=== PATIENT | female | born 1995 | race Caucasian/White ===

== ENCOUNTER 2019-12-07 18:23 | Emergency (ER) | payer BC, SELFPAY ==
[2019-12-07 18:24] VITALS: BMI 44.3
[2019-12-07 18:31] VITALS: BP 138/87; PULSE 114; RESP 18; TEMP 36.7; O2SAT 97
--- NOTE | 2019-12-07 19:19 | ED_ITS ---
HPI - General Adult General: Chief complaint: Abdominal Pain Stated complaint: ABD PAIN Time Seen by Provider: 12/07/19 19:07 History of Present Illness: HPI narrative: Patient complains about abdominal pain left and right side lower ovary area. Just finished her period a week ago. Possible left a tampon and she said not for sure. Nurse that she is having copious amounts of discharge when she did a cath urine on her. Patient name fever. Had sex unprotected probably a month or 2 months ago she said not sure denies any history of STIs MD complaint: Pubic abdominal pain Onset (ago): day(s) (2) Location: abdomen and pelvis Radiation: non-radiation Severity scale (1-10): 6 Quality: stabbing Relieving factors: none Exacerbating factors: none Associated symptoms: Reports no associated symptoms; Deny chest pain, dyspnea, headache(s), nausea, rash or vomiting Review of Systems Const: Denies: fever, chills or body aches Eyes: Denies: change in vision or blurry vision ENMT: Denies: throat pain or nasal congestion Card: Denies: chest pain or shortness of breath on exertion Resp: Denies: shortness of breath, productive cough or non-productive cough GI: Reports: abdominal pain; Denies: nausea or vomiting Musc: Denies: extremity pain Skin/Breast: Denies: rash Neuro: Denies: headache Psych: Denies: anxiety or depression Luis/Lymph: Denies: easy bruising PFS ED PFSH: Social History Smoking and tobacco status: current every day smoker Female Reproductive History: Date of last menstrual period: 11/30/19 Physical Exam Const: COMMON NORMALS: no apparent distress, average body habitus and oriented x3 HENMT: COMMON NORMALS: normocephalic HEAD & SCALP: normal to inspection and normocephalic FACE & SINUS: normal facial exam Eye: COMMON NORMALS: conjunctivae normal GENERAL EYE: normal appearance of both eyes CONJUNCTIVA: Yes conjunctivae normal Neck/C-Spine: COMMON NORMALS: no JVD Chest: COMMONS NORMALS: inspection of chest normal Resp: COMMON NORMALS: normal respiratory effort and clear to auscultation bilaterally AUSCULTATION: clear to auscultation bilaterally Cardio: COMMON NORMALS: no JVD, regular rate and regular rhythm RATE: regular rate RHYTHM: regular rhythm GI: COMMON NORMALS: normal to inspection, nondistended, normoactive bowel sounds PALPATION: Yes tender Details: LLQ and RLQ : SPECULUM EXAM - CERVIX: Yes mucoid cervix, Yes abnormal cervical discharge and Yes cervical tenderness BIMANUAL EXAM - VAGINA & UTERUS: Yes cervical tenderness BIMANUAL EXAM - ADNEXA, OTHER: Yes adnexal tenderness Extremity: COMMON NORMALS: normal to inspection and full ROM Neuro: COMMON NORMALS: oriented x3 Course Vital Signs: Vital signs: Vital Signs Temperature 98.1 F 12/07/19 18:31 Pulse Rate 114 H 12/07/19 18:31 Respiratory Rate 18 12/07/19 18:31 Blood Pressure 138/87 12/07/19 18:31 Pulse Oximetry 97 12/07/19 18:31 [facility] - General Adult Lab Data: Labs: Lab Results 12/07/19 12/07/19 12/07/19 Range/Units 19:14 19:14 19:17 WBC 18.4 H (4.0-10.0) 10^3/ uL RBC 4.59 (4.1-5.3) 10^6/u L Hgb 13.5 (11.5-15.3) g/dL Hct 40.4 (37.0-47.0) % MCV 88.0 (81-99) fL MCH 29.4 (28.0-34.0) pg MCHC 33.4 (30.0-36.0) g/dL RDW 13.4 (12.1-15.1) % Plt Count 352 (130-400) 10^3/c mm MPV 9.4 (7.4-10.4) fL Neut % (Auto) 80.1 % Lymph % (Auto) 10.5 % Sumner % (Auto) 6.0 % Eos % (Auto) 2.2 % Baso % (Auto) 0.5 % Neut # (Auto) 14.8 H (1.8-7.7) 10^3/u L Lymph # (Auto) 1.9 (0.8-4.8) 10^3/u L Sumner # (Auto) 1.1 H (0.2-0.9) 10^3/u L Eos # (Auto) 0.4 (0.0-0.8) 10^3/u L Baso # (Auto) 0.1 (0.0-0.1) 10^3/u L Nucleated RBC % (a uto) 0 % Nucleated RBCs # 0.0 /100WBC Sodium (136-145) mmol/L Potassium (3.5-5.1) mmol/L Chloride (98-107) mmol/L Carbon Dioxide (22-29) mmol/L Anion Gap (5-19) BUN (6-20) mg/dL Creatinine (0.5-0.9) mg/dL GFR Calculation (90-130) mL/min Glucose (65-115) mg/dL Calculated Osmolal ity (285-295) mOsm/k g Calcium (8.5-10.5) mg/dL Total Bilirubin (0.15-1.2) mg/dL AST (0-32) U/L ALT (0-33) U/L Alkaline Phosphata se (35-105) IU/L Total Protein (6.6-8.7) g/dL Albumin (3.5-5.2) g/dL Globulin (1.3-4.6) g/dL Lipase (13-60) U/L HCG, Qual Negative (Negative) Urine Color Yellow (Yellow) Urine Appearance Clear (CLEAR) Urine pH 8 H (5-7) Ur Specific Gravit y 1.005 (1.005-1.030) Urine Protein Neg (Negative) Urine Glucose (UA) Norm (Normal) Urine Ketones Negative (Negative) Urine Blood 3+ H (Negative) Urine Nitrate Negative (Negative) Urine Bilirubin Neg (NEGATIVE) Urine Urobilinogen Norm (Negative) mg/dL Ur Leukocyte Fay ase 1+ H (Negative) Urine RBC 5-10 H (0-2) /hpf Urine WBC 10-15 H (0-5) /hpf Ur Squamous Epith Cells Rare (0-5) Urine Bacteria Trace (NONE) 12/07/19 Range/Units 19:17 WBC (4.0-10.0) 10^3/ uL RBC (4.1-5.3) 10^6/u L Hgb (11.5-15.3) g/dL Hct (37.0-47.0) % MCV (81-99) fL MCH (28.0-34.0) pg MCHC (30.0-36.0) g/dL RDW (12.1-15.1) % Plt Count (130-400) 10^3/c mm MPV (7.4-10.4) fL Neut % (Auto) % Lymph % (Auto) % Sumner % (Auto) % Eos % (Auto) % Baso % (Auto) % Neut # (Auto) (1.8-7.7) 10^3/u L Lymph # (Auto) (0.8-4.8) 10^3/u L Sumner # (Auto) (0.2-0.9) 10^3/u L Eos # (Auto) (0.0-0.8) 10^3/u L Baso # (Auto) (0.0-0.1) 10^3/u L Nucleated RBC % (a uto) % Nucleated RBCs # /100WBC Sodium 136 (136-145) mmol/L Potassium 3.5 (3.5-5.1) mmol/L Chloride 99 (98-107) mmol/L Carbon Dioxide 25 (22-29) mmol/L Anion Gap 15.5 (5-19) BUN 5 L (6-20) mg/dL Creatinine 0.7 (0.5-0.9) mg/dL GFR Calculation 103.7 (90-130) mL/min Glucose 95 (65-115) mg/dL Calculated Osmolal ity 278 L (285-295) mOsm/k g Calcium 9.9 (8.5-10.5) mg/dL Total Bilirubin 0.6 (0.15-1.2) mg/dL AST 10 (0-32) U/L ALT 13 (0-33) U/L Alkaline Phosphata se 96 (35-105) IU/L Total Protein 7.7 (6.6-8.7) g/dL Albumin 4.1 (3.5-5.2) g/dL Globulin 3.6 (1.3-4.6) g/dL Lipase 8 L (13-60) U/L HCG, Qual (Negative) Urine Color (Yellow) Urine Appearance (CLEAR) Urine pH (5-7) Ur Specific Gravit y (1.005-1.030) Urine Protein (Negative) Urine Glucose (UA) (Normal) Urine Ketones (Negative) Urine Blood (Negative) Urine Nitrate (Negative) Urine Bilirubin (NEGATIVE) Urine Urobilinogen (Negative) mg/dL Ur Leukocyte Fay ase (Negative) Urine RBC (0-2) /hpf Urine WBC (0-5) /hpf Ur Squamous Epith Cells (0-5) Urine Bacteria (NONE) Coding Level of Care Code ED Research Instructor for Chg Fwd Exam Comprehensive
[2019-12-07 19:29] LABS: Basophils # 0.1 10^3/uL (0.0-0.1); Basophils % 0.5 %; Eosinophils # 0.4 10^3/uL (0.0-0.8); Eosinophils % 2.2 %; Hematocrit 40.4 % (37.0-47.0); Hemoglobin 13.5 g/dL (11.5-15.3); Lymphocytes # 1.9 10^3/uL (0.8-4.8); Lymphocytes % 10.5 %; Mean Corpuscular HGB Conc 33.4 g/dL (30.0-36.0); Mean Corpuscular Hemoglobin 29.4 pg (28.0-34.0); Mean Platelet Volume 9.4 fL (7.4-10.4); Monocytes # 1.1 10^3/uL (0.2-0.9); Neutrophils # 14.8 10^3/uL (1.8-7.7); Neutrophils % 80.1 %; Nucleated Red Blood Cells % 0 %; Platelet Count 352 10^3/cmm (130-400); Red Blood Count 4.59 10^6/uL (4.1-5.3); Red Cell Distribution Width 13.4 % (12.1-15.1); White Blood Count 18.4 10^3/uL (4.0-10.0)
[2019-12-07] MEDS: ketorolac 30 mg/mL INJ IVP (19:36)
[2019-12-07 19:38] LABS: HCG Qualitative Urine. Negative (Negative)
[2019-12-07 19:43] LABS: Blood Urine 3+ (Negative); Glucose Urine UA Norm (Normal); Ketones Urine Negative (Negative); Protein Urine Neg (Negative); Specific Gravity, Urine 1.005 (1.005-1.030); Urine Appearance Clear (CLEAR); Urine Color Yellow (Yellow); pH Urine 8 (5-7)
[2019-12-07 19:43] LABS: Alanine Aminotransferase 13 U/L (0-33); Albumin Level 4.1 g/dL (3.5-5.2); Alkaline Phosphatase 96 IU/L (35-105); Anion Gap 15.5 (5-19); Aspartate Amino Transferase 10 U/L (0-32); Blood Urea Nitrogen 5 mg/dL (6-20); Calcium 9.9 mg/dL (8.5-10.5); Carbon Dioxide 25 mmol/L (22-29); Chloride 99 mmol/L (98-107); Globulin 3.6 g/dL (1.3-4.6); Glomerular Filtration Rate 103.7 mL/min (90-130); Glucose 95 mg/dL (65-115); Lipase 8 U/L (13-60); Osmolality Calculated 278 mOsm/kg (285-295); Potassium 3.5 mmol/L (3.5-5.1); Sodium 136 mmol/L (136-145); Total Bilirubin 0.6 mg/dL (0.15-1.2); Total Protein 7.7 g/dL (6.6-8.7)
[2019-12-07 19:44] LABS: Add Urine Culture? Yes; Add Urine Microscopic? YES; Bacteria Urine TRACE; Bilirubin Urine Neg (NEGATIVE); Leukocyte Esterase Urine 1+ (Negative); Nitrate Urine Negative (Negative); Squamous Epithelial Cell Urine RARE (0-5); Urobilinogen Urine Norm (Negative)
[2019-12-07 20:32] LABS: Lactate (Lactic Acid level) 0.7 mmol/L (0.5-2.2)
[2019-12-07] MEDS: cefTRIAXone 1,000 mg SDV 1000 MG IM (20:59)
[2019-12-07] MEDS: doxycycline 100 mg Tablet PO (20:59)
[2019-12-07] MEDS: metroNIDAZOLE 500 MG Tablet PO (21:00)
[2019-12-07 21:34] VITALS: BP 142/68; PULSE 72; RESP 18; O2SAT 92
== END 2019-12-07 21:35 | disposition home or self-care (01) ==
PROVIDERS: Emergency Provider Nurse Practitioner Family
DX: R10.31 Right lower quadrant pain (principal); R10.2 Pelvic and perineal pain; F17.200 Nicotine dependence, unspecified, uncomplicated
CPT/HCPCS: 12345; 36415; 80053; 81001; 81025; 83605; 83690; 85025; 87070; 87086; 87210; 87491; 87591; 96361; 96372; 96374; 96375; 99283; A9270; C1751; E0352; J0696; J1885